=== PATIENT | female | born 1995 | race Caucasian/White ===

== ENCOUNTER 2018-12-02 12:41 | Day surgery (SDC) | payer OTHER ==
[~2018-12-02] VITALS: Ht 162.6 cm; Wt 105.5 kg
[~2018-12-02 12:41] MED LIST: EPINEPHRINE 1 MG/ML, 1ML ONE; IBUP200C8 PO; LIDOCAINE 1%, 20ML ONE; MULT-752 PO; ROPIvacaine/PF 0.5%, 30 ML ONE
[2018-12-02] MEDS ORDERED: MIDAZOLAM 1 MG/ML, 2ML ONE (13:07)
[2018-12-02] MEDS ORDERED: FENTANYL PF 250 MCG/5ML ONE (13:07)
[2018-12-02] MEDS ORDERED: LACTATED RINGERS 1,000 ML IV SCH (13:15)
[2018-12-02] MEDS ORDERED: ACETAMINOPHEN 500 MG TABLET PO ONE (13:30)
[2018-12-02] MEDS ORDERED: GABAPENTIN 300 MG CAPSULE PO ONE (13:30)
[2018-12-02] MEDS ORDERED: SCOPOLAMINE PATCH, 1.5MG PATCH.TD72 TD ONE (13:30)
[2018-12-02 13:46] VITALS: BP 145/75
[2018-12-02] MEDS ORDERED: DEXAMETHASONE 4 MG/ML, 1ML ONE (13:51)
[2018-12-02] MEDS ORDERED: PROPOFOL 10 MG/ML, 20ML ONE (13:51)
[2018-12-02] MEDS ORDERED: ONDANSETRON 2MG/ML, 2ML ONE (13:51)
[2018-12-02] MEDS ORDERED: CEFAZOLIN 1,000 MG ONE (13:51)
[2018-12-02] MEDS ORDERED: MEPERIDINE/PF 50 MG/ML ONE (14:21)
[2018-12-02] MEDS ORDERED: OXYcodone 5 MG/5 ML ORAL.SOL UDC PO PRN (14:30)
[2018-12-02] MEDS ORDERED: PROMETHAZINE 25 MG/ML, 1ML IV PRN (14:30)
[2018-12-02] MEDS ORDERED: MEPERIDINE/PF 25MG/0.5ML IVPush PRN (14:30)
[2018-12-02] MEDS ORDERED: HYDROmorphone 2 MG/ML, 1ML IVPush PRN (14:30)
[2018-12-02] MEDS ORDERED: hydrALAzine 20 MG/ML, 1ML IV PRN (14:30)
[2018-12-02] MEDS ORDERED: HALOPERIDOL 5 MG/ML IV PRN (14:30)
[2018-12-02] MEDS ORDERED: FENTANYL PF 100 MCG/2ML ONE (15:30)
[2018-12-02] MEDS ORDERED: OXYcodone 5 MG/5 ML ORAL.SOL UDC ONE (15:30)
[2018-12-02] MEDS: FENTANYL PF 100 MCG/2ML IV PRN ×2 (15:33→16:00)
[2018-12-02] MEDS ORDERED: KETOROLAC 30 MG/1 ML ONE (16:28)
[2018-12-02] MEDS ORDERED: KETOROLAC 30 MG/1 ML IVPush PRN (16:30)
[2018-12-02] MEDS ORDERED: morphine SULFATE 10 MG/ML, 1ML IVPush PRN (16:30)
== END 2018-12-02 19:01 | disposition home or self-care (01) ==
LOC: OUT 12:41
PROVIDERS: ATTEND Orthopaedic Surgery
DX: S83.511A Sprain of anterior cruciate ligament of right knee, initial encounter (principal); S83.241A Other tear of medial meniscus, current injury, right knee, initial encounter; S83.281A Other tear of lateral meniscus, current injury, right knee, initial encounter; M65.861 Other synovitis and tenosynovitis, right lower leg; E66.9 Obesity, unspecified; X50.1XXA Overexertion from prolonged static or awkward postures, initial encounter; Y93.39 Activity, other involving climbing, rappelling and jumping off; Y92.89 Other specified places as the place of occurrence of the external cause; Y99.8 Other external cause status
CPT/HCPCS: 29880; 29888; 64447; 73560; 76000; 81025; C1713; C1762; J0171; J0690; J1100; J1885; J2175; J2250; J2405; J2704; J2795; J3010; J7120